=== PATIENT | female | born 1970 | race Caucasian/White ===

== ENCOUNTER 2022-07-13 08:53 | Outpatient (CLI) | payer MEDICAID, SELFPAY | END 2022-07-13 08:54 | disposition home or self-care (01) | LOC: AMB 07-19 01:19 | PROVIDERS: Visit Provider Student in an Organized Health Care Education/Training Program | DX: R41.82 Altered mental status, unspecified (principal) | CPT/HCPCS: A0425; A0429 ==

== ENCOUNTER 2022-07-13 09:34 | Emergency (ER) | payer MEDICAID, SELFPAY ==
[2022-07-13 09:42] VITALS: BP 142/86; PULSE 72; RESP 16; O2SAT 95; BMI 27.4
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
[2022-07-13 10:32] LABS: Basophils Absolute Auto 0.04 K/uL (0.00-0.30); Basophils Percent Auto 0.4 % (0.0-3.0); Eosinophils Absolute Auto 0.14 K/uL (0.00-0.50); Eosinophils Percent Auto 1.6 % (0.0-7.0); Hematocrit 40.7 % (33.0-51.0); Hemoglobin* 13.9 gm/dL (12.0-16.0); Lymphocytes Percent Auto 18.5 % (20-44); Mean Corpuscular HGB Conc 34 gm/dL (32-36); Mean Corpuscular Hemoglobin 31 pg (26-34); Mean Corpuscular Volume 92 fL (80-100); Monocytes Percent Auto 7.8 % (0.0-11.0); Neutrophils Absolute Auto 6.38 K/uL (1.7-7.0); Neutrophils Percent Auto 71.7 % (42.0-72.0); Platelet Count* 364 K/uL (140-440); RDW Coefficient of Variation % 12.3 % (11.5-15.5); Red Blood Count 4.44 m/uL (4.00-5.20)
[2022-07-13 10:50] LABS: Slide Review Reflex No
[2022-07-13 10:52] LABS: Albumin* 4.3 g/dL (3.3-5.0); Chloride* 106 mmol/L (96-114); Sodium* 141 mmol/L (135-149)
[2022-07-13 10:53] LABS: Potassium* 4.2 mmol/L (3.6-5.1)
[2022-07-13 10:57] LABS: Alanine Aminotransferase* 36 U/L (4-35); Alkaline Phosphatase* 106 U/L (40-150); Aspartate Amino Transferase* 28 U/L (12-35); Bilirubin Total* 0.8 mg/dL (0.1-1.5); Blood Urea Nitrogen* 12 mg/dL (7-30); Calcium* 9.6 mg/dL (8.4-10.6); Creatinine* 0.7 mg/dL (0.5-1.5); Est. Creatinine Clearance* 76.04; Estimated Glomerular Filt Rate 105 ml/min; Glucose* 126 mg/dL (60-115); Total Protein* 7.2 g/dL (6.0-8.3)
[2022-07-13 11:01] LABS: Ethanol* < 0.01 % (0.01-0.03)
[2022-07-13 11:10] LABS: Carbon Dioxide* 28 mmol/L (20-32)
== END 2022-07-13 13:12 | disposition home or self-care (01) ==
PROVIDERS: Emergency Provider Student in an Organized Health Care Education/Training Program
DX: F32.A Depression, unspecified (principal)
CPT/HCPCS: 36415; 70450; 80053; 80306; 82077; 84443; 85025; 99283; 99284